=== PATIENT | female | born 1980 | race Caucasian/White ===

== ENCOUNTER 2017-01-05 01:38 | Emergency (ER) | payer MEDICAID ==
[~2017-01-05] VITALS: Ht 160 cm; Wt 72.0 kg
[2017-01-05 01:45] VITALS: Ht 160 cm; Wt 72.0 kg
[2017-01-05] MEDS ORDERED: HYDROmorphONE 1 MG/ML SYG IV STA (03:33)
[2017-01-05] MEDS ORDERED: ONDANSETRON 4 MG INJ IV STA (03:33)
[2017-01-05 04:05] LABS: ADD SCAN DIFF NO
[2017-01-05 04:09] LABS: BASOPHILS % 0.1 % (0.0-2.0); EOSINOPHILS % 0.1 % (0.0-7.0); HEMATOCRIT 34.8 % (37.0-47.0); HEMOGLOBIN 11.6 g/dl (12.0-16.0); LYMPHOCYTES # 1.1 10^3/ul (0.8-2.9); LYMPHOCYTES % 11.3 % (15.0-51.0); MEAN CORPUSCULAR HEMOGLOBIN 29.3 pg (29.0-33.0); MEAN CORPUSCULAR HGB CONC 33.3 g/dl (32.0-37.0); MEAN CORPUSCULAR VOLUME 87.9 fl (82.0-101.0); MEAN PLATELET VOLUME 10.9 fl (7.4-10.4); MONOCYTE # 0.9 10^3/ul (0.3-0.9); MONOCYTES % 9.3 % (0.0-11.0); NEUTROPHIL # 7.3 10^3/ul (1.6-7.5); NEUTROPHILS % 78.9 % (39.0-77.0); PLATELET COUNT 238 10^3/UL (140-415); RED BLOOD COUNT 3.96 10^6/ul (4.20-5.40); RED CELL DISTRIBUTION WIDTH 12.5 % (11.5-14.5); WHITE BLOOD COUNT 9.3 10^3/ul (4.8-10.8)
[2017-01-05 04:30] LABS: ALBUMIN 4.5 g/dl (3.3-4.9); ALBUMIN/GLOBULIN RATIO 1.55; BILIRUBIN,INDIRECT 0.4 mg/dl (0-1.1); BILIRUBIN,TOTAL 0.4 mg/dl (0.2-1.3); CALCIUM 8.9 mg/dl (8.4-10.2); CREATININE 0.74 mg/dl (0.44-1.00); POTASSIUM 3.3 mmol/L (3.5-5.1); TOTAL PROTEIN 7.4 g/dl (6.1-8.1)
[2017-01-05 04:50] VITALS: BP 104/64; PULSE 97; RESP 18
[2017-01-05] MEDS ORDERED: SOD CHLORIDE 0.9% 100 ML ONE (05:11)
[2017-01-05] MEDS ORDERED: IOHEXOL 300MG/ML 150 ML BTL ONE (05:11)
--- NOTE | 2017-01-05 05:34 | RADRPT ---
PROCEDURE: CT Abdomen and Pelvis with contrast. CLINICAL INDICATION: Abdominal pain. TECHNIQUE: CT scan of the abdomen and pelvis with contrast was performed utilizing axial tomograph ic images from the domes the diaphragm to the symphysis pubis. The patient was scanned post uncomp licated intravenous administration of 100 cc of Omnipaque-300. Coronal and sagittal reformatted shemar ges were obtained from the axial source images. Images were reviewed on a high-resolution PACS works tation. The total exam CTDI equals 11.93 mGy and the total exam DLP equals 646.98 mGy-cm. One or mo re of the following dose reduction techniques were used: Automated exposure control, adjustment of the mA and / or kV according to patient size, or use of iterative reconstruction technique. COMPARISON: None. FINDINGS: The lung bases are clear . The liver is normal in size and contour. No focal intrahepatic masses are identified. There is no intra or extrahepatic biliary dilatation. The gallbladder is unremark able by CT criteria. The spleen, pancreas, and adrenal glands are unremarkable. The kidneys are symmetric in size and demonstrate irregular enhancement of the lower pole right kidn ey. No hydronephrosis or hydroureter is seen. No renal parenchymal mass is identified. The urinary bladder is unremarkable. There is a small hiatal hernia. There is no evidence of bowel obstruction. There is mucosal thicken ing of the cecum and ascending colon. The appendix is normal in appearance. The uterus and adnexa a re unremarkable. There is small free fluid in the pelvis. No intraperitoneal free air or abscess id entified. No retroperitoneal, mesenteric, or inguinal adenopathy is identified. There are small righ t lower quadrant mesenteric lymph nodes, prominent in number The abdominal aorta and major branching vessels are normal in caliber. The osseous structures are u nremarkable. No significant subcutaneous soft tissue abnormality is identified. IMPRESSION: 1. Mucosal thickening of the cecum and ascending colon, consistent with colitis. There are small l ymph nodes within the right lower quadrant mesentery, likely reactive. The appendix is normal in ap pearance. 2. Patchy enhancement the lower pole of the right kidney, nonspecific, clinical correlation and cor relation for analysis is recommended to exclude ascending urinary tract infection. 3. Small free fluid in the pelvis. RPTAT: HH .Selina Perez MD, MD Date Time Electronically viewed and signed by .Selina Perez MD, MD on 01/05/2017 05:34 .G/
[2017-01-05] MEDS ORDERED: CIPR500T4 PO (05:49)
[2017-01-05] MEDS ORDERED: METR500T PO (05:49)
[2017-01-05] MEDS ORDERED: HYDR-902 PO (05:49)
--- NOTE | 2017-01-05 05:52 | ERD ---
ER Documentation Chief Complaint Date/Time DATE: 01/05/17 TIME: 05:50 Chief Complaint abd pain x 1; nausea; no vomiting HPI This is a 36-year-old female complains of pain in the left lower quadrant onset yesterday morning at 11 AM. The pain is gradual described as constant and crampy sometimes sharp. The pain is no radiation. She has no vomiting she does have nausea one time diarrhea. No history of similar symptoms in the past. No chest pain shortness of breath. No back pain no hematuria dysuria ROS All systems reviewed and are negative except as per history of present illness. Medications Home Meds Active Scripts Hydrocodone/Acetaminophen ([place] 10-325 Tablet) 1 Each Tablet, 1 TAB PO Q6H Y for PAIN, #20 TAB Prov:TAMERA JEANSTOLOS A. DO 01/05/17 Metronidazole* (Flagyl*) 500 Mg Tablet, 500 MG PO TID for 10 Days, TAB Prov:LEKKOS,APOSTOLOS A. DO 01/05/17 Ciprofloxacin Hcl* (Ciprofloxacin Hcl*) 500 Mg Tablet, 500 MG PO BID for 10 Days , TAB Prov:LEKKOS,TAMERASTOLOS A. DO 01/05/17 Allergies Allergies: Coded Allergies: No Known Drug Allergy (Verified Allergy, Mild, 03/30/14) PMhx/Soc History of Surgery: Yes (hysterectomy 2016) Anesthesia Reaction: No Hx Neurological Disorder: No Hx Respiratory Disorders: No Hx Cardiac Disorders: No Hx Psychiatric Problems: No Hx Miscellaneous Medical Probl: No Hx Alcohol Use: No Hx Substance Use: No Hx Tobacco Use: No Smoking Status: Never smoker FmHx Family History: No coronary disease Physical Exam Vitals Vital Signs Date Time Temp Pulse Resp B/P Pulse Ox O2 Delivery O2 Flow Rate FiO2 01/05/17 04:50 97 18 104/64 100 Room Air 01/05/17 01:45 99.6 91 20 116/70 99 Physical Exam Const: Well-developed, well-nourished Head: Atraumatic, normocephalic Eyes: Normal Conjunctiva, PERRLA, EOMI, normal sclera, no nystagmus ENT: Normal External Ears, Nose and Mouth, moist mucus membranes. Neck: Full range of motion. No meningismus, no lymphadenopathy. Resp: Clear to auscultation bilaterally, no wheezing, rhonchi, rales Cardio: Regular rate and rhythm, no murmurs, S1 S2 present Abd: Soft, mild to moderate left lower quadrant tenderness, non distended. Normal bowel sounds, no guarding or rebound, no pulsitile abdominal masses or bruits Skin: No petechiae or rashes, no ecchymosis , no maculopapular rash Back: No midline or flank tenderness Ext: No cyanosis, or edema, FROM x 4, normal inspection, neurovascularly intact x 4 Neur: Awake and alert, STR 5/5 x 4, sensation intact x 4, no focal findings, cerebellum intact Psych: Normal Mood and Affect Result Diagram: 01/05/17 0345 01/05/17 0345 Results 24 hrs Laboratory Tests Test 01/05/17 03:45 White Blood Count 9.310^3/ul Red Blood Count 3.9610^6/ul Hemoglobin 11.6g/dl Hematocrit 34.8% Mean Corpuscular Volume 87.9fl Mean Corpuscular Hemoglobin 29.3pg Mean Corpuscular Hemoglobin Concent 33.3g/dl Red Cell Distribution Width 12.5% Platelet Count 21358^3/UL Mean Platelet Volume 10.9fl Neutrophils % 78.9% Lymphocytes % 11.3% Monocytes % 9.3% Eosinophils % 0.1% Basophils % 0.1% Nucleated Red Blood Cells % 0.0/100WBC Neutrophils # 7.310^3/ul Lymphocytes # 1.110^3/ul Monocytes # 0.910^3/ul Eosinophils # 0.010^3/ul Basophils # 0.010^3/ul Nucleated Red Blood Cells # 0.010^3/ul Sodium Level 137mmol/L Potassium Level 3.3mmol/L Chloride Level 102mmol/L Carbon Dioxide Level 27mmol/L Anion Gap 11 Blood Urea Nitrogen 8mg/dl Creatinine 0.74mg/dl Glucose Level 97mg/dl Calcium Level 8.9mg/dl Total Bilirubin 0.4mg/dl Direct Bilirubin 0.00mg/dl Indirect Bilirubin 0.4mg/dl Aspartate Amino Transf (AST/SGOT) 27IU/L Alanine Aminotransferase (ALT/SGPT) 38IU/L Alkaline Phosphatase 75IU/L Total Protein 7.4g/dl Albumin 4.5g/dl Globulin 2.90g/dl Albumin/Globulin Ratio 1.55 Current Medications Medications (Trade) Dose Ordered Sig/Baldomero Route PRN Reason Start Time Stop Time Status Last Admin Dose Admin Hydromorphone HCl (Dilaudid) 1 mg ONCE STAT IV 01/05/17 03:33 01/05/17 03:35 DC 01/05/17 03:47 Ondansetron HCl 4 mg 4 mg ONCE STAT IV 01/05/17 03:33 01/05/17 03:35 DC 01/05/17 03:47 Sodium Chloride (NS) 100 ml @ ud STK-MED ONCE .ROUTE 01/05/17 05:11 01/05/17 05:12 DC 01/05/17 05:23 Iohexol (Omnipaque 300mg/ ml) 150 ml STK-MED ONCE .ROUTE 01/05/17 05:11 01/05/17 05:12 DC 01/05/17 05:23 Procedures/MDM PROCEDURE: CT Abdomen and Pelvis with contrast. CLINICAL INDICATION: Abdominal pain. TECHNIQUE: CT scan of the abdomen and pelvis with contrast was performed utilizing axial tomographic images from the domes the diaphragm to the symphysis pubis. The patient was scanned post uncomplicated intravenous administration of 100 cc of Omnipaque-300. Coronal and sagittal reformatted images were obtained from the axial source images. Images were reviewed on a high-resolution PACS workstation. The total exam CTDI equals 11.93 mGy and the total exam DLP equals 646.98 mGy-cm. One or more of the following dose reduction techniques were used: Automated exposure control, adjustment of the mA and / or kV according to patient size, or use of iterative reconstruction technique. COMPARISON: None. FINDINGS: The lung bases are clear . The liver is normal in size and contour. No focal intrahepatic masses are identified. There is no intra or extrahepatic biliary dilatation. The gallbladder is unremarkable by CT criteria. The spleen , pancreas, and adrenal glands are unremarkable. The kidneys are symmetric in size and demonstrate irregular enhancement of the lower pole right kidney. No hydronephrosis or hydroureter is seen. No renal parenchymal mass is identified. The urinary bladder is unremarkable. There is a small hiatal hernia. There is no evidence of bowel obstruction. There is mucosal thickening of the cecum and ascending colon. The appendix is normal in appearance. The uterus and adnexa are unremarkable. There is small free fluid in the pelvis. No intraperitoneal free air or abscess identified. No retroperitoneal, mesenteric, or inguinal adenopathy is identified. There are small right lower quadrant mesenteric lymph nodes, prominent in number The abdominal aorta and major branching vessels are normal in caliber. The osseous structures are unremarkable. No significant subcutaneous soft tissue abnormality is identified. IMPRESSION: 1. Mucosal thickening of the cecum and ascending colon, consistent with colitis. There are small lymph nodes within the right lower quadrant mesentery , likely reactive. The appendix is normal in appearance. 2. Patchy enhancement the lower pole of the right kidney, nonspecific, clinical correlation and correlation for analysis is recommended to exclude ascending urinary tract infection. 3. Small free fluid in the pelvis. RPTAT: HH .Selina Perez MD, MD Date Time Electronically viewed and signed by .Selina Perez MD, MD on 01/05/2017 05 :34 .G/ CC: ALIS JEAN DO Blood work is unremarkable. Will discharge home with Cipro Flagyl and pain control. Patient has colitis of the descending and cecal: Departure Diagnosis: Primary Impression: Colitis Condition: Stable Patient Instructions: Diet, Vomiting Or Diarrhea [6Yr-Adult] ALIS JEAN DO Jan 05, 2017 05:52
== END 2017-01-05 06:11 | disposition home or self-care (01) ==
LOC: E/R 01:38
DX: K52.9 Noninfective gastroenteritis and colitis, unspecified (principal)
CPT/HCPCS: 74177; 80053; 85025; J1170; J2405; Q9967; Z7610; 36415; 96374; 96375

== ENCOUNTER 2017-05-04 08:21 | Emergency (ER) | payer MEDICAID ==
[~2017-05-04] VITALS: Ht 160 cm; Wt 68.0 kg
[~2017-05-04 08:21] MED LIST: CIPR500T4 PO; HYDR-902 PO; METR500T PO
[2017-05-04 08:24] VITALS: Ht 160 cm; Wt 68.0 kg
[2017-05-04 09:49] LABS: URINE BLOOD (Dip) POC Trace-intact (NEGATIVE)
[2017-05-04 10:59] LABS: ADD UMIC YES; UR ASCORBIC ACID NEGATIVE (NEGATIVE); UR BACTERIA FEW /HPF (NONE SEEN); UR BILIRUBIN (Dip) NEGATIVE (NEGATIVE); UR BLOOD (Dip) NEGATIVE (NEGATIVE); UR CLARITY CLEAR (CLEAR); UR COLOR YELLOW (YELLOW); UR GLUCOSE (Dip) NEGATIVE (NEGATIVE); UR KETONES (Dip) NEGATIVE (NEGATIVE); UR LEUKOCYTE ESTERASE (Dip) 1+ Leu/ul (NEGATIVE); UR NITRITE (Dip) NEGATIVE (NEGATIVE); UR NONSQUAMOUS EPITHELIAL CELL 1 /HPF (NONE SEEN); UR RBC 4 /HPF (0-5); UR SPECIFIC GRAVITY (Dip) 1.014 (1.003-1.030); UR SQUAMOUS EPITHELIAL CELL FEW /HPF (FEW); UR TOTAL PROTEIN (Dip) NEGATIVE (NEGATIVE); UR UROBILINOGEN (Dip) NEGATIVE (NEGATIVE)
--- NOTE | 2017-05-04 11:29 | ERD ---
ER Documentation Chief Complaint Chief Complaint dysuria x 3 days HPI 36 y/o female, presents to ED c/o dysuria for 3 days, associated with frequency , pelvic pressure and strong urine odor. The patient denies fever,chills, no nausea, no vomiting, no vaginal discharge. No treatment attempted. ROS All systems reviewed and are negative except as per history of present illness. Medications Home Meds Active Scripts Ciprofloxacin Hcl* (Ciprofloxacin Hcl*) 250 Mg Tablet, 250 MG PO BID for 5 Days , #14 TAB Prov:MOMO FOSTER MD 05/04/17 Hydrocodone/Acetaminophen ([place] 10-325 Tablet) 1 Each Tablet, 1 TAB PO Q6H Y for PAIN, #20 TAB Prov:TAMERA JEANSTOLOS A. DO 01/05/17 Metronidazole* (Flagyl*) 500 Mg Tablet, 500 MG PO TID for 10 Days, TAB Prov:LEKKOS,APOSTOLOS A. DO 01/05/17 Ciprofloxacin Hcl* (Ciprofloxacin Hcl*) 500 Mg Tablet, 500 MG PO BID for 10 Days , TAB Prov:TAMERA JEANSTOLOS A. DO 01/05/17 Allergies Allergies: Coded Allergies: No Known Drug Allergy (Unverified Allergy, Mild, 01/05/17) PMhx/Soc History of Surgery: Yes (hysterectomy 2016) Anesthesia Reaction: No Hx Neurological Disorder: No Hx Respiratory Disorders: No Hx Cardiac Disorders: No Hx Psychiatric Problems: No Hx Miscellaneous Medical Probl: No Hx Alcohol Use: No Hx Substance Use: No Hx Tobacco Use: No Physical Exam Vitals Vital Signs Date Time Temp Pulse Resp B/P Pulse Ox O2 Delivery O2 Flow Rate FiO2 05/04/17 08:24 98.3 74 18 102/58 98 Physical Exam Alert, oriented, no distress Head: Atraumatic Resp: Clear to auscultation bilaterally Cardio: Regular rate and rhythm, no murmurs Abd: Soft, non tender, non distended. Normal bowel sounds Back: No midline or flank tenderness Ext: No cyanosis, or edema Results 24 hrs Laboratory Tests Test 05/04/17 09:39 05/04/17 09:51 Urine Color YELLOW Urine Clarity CLEAR Urine pH 9.0 Urine Specific [place] 1.014 Urine Ketones NEGATIVEmg/dL Urine Nitrite NEGATIVEmg/dL Urine Bilirubin NEGATIVEmg/dL Urine Urobilinogen NEGATIVEmg/dL Urine Leukocyte Esterase 1+Carlos/ul Urine Microscopic RBC 4/HPF Urine Microscopic WBC 68/HPF Urine Squamous Epithelial Cells FEW/HPF Urine Bacteria FEW/HPF Urine Hemoglobin NEGATIVEmg/dL Urine Glucose NEGATIVEmg/dL Urine Total Protein NEGATIVEmg/dl Bedside Urine pH (LAB) 8.5 Bedside Urine Protein (LAB) Trace Bedside Urine Glucose (UA) Negative Bedside Urine Ketones (LAB) Negative Bedside Urine Blood Trace-intact Bedside Urine Nitrite (LAB) Negative Bedside Urine Leukocyte Esterase (L 1+ Procedures/MDM 36 y/o female patient, presents to the ED c/o dysuria for 3 days. Physical exam and vital signs unremarkable. Differential diagnosis include but not limited to :UTI, renal stone, vaginitis, appendicitis.. Labs requested showed: pyuria. Clinical presentation consistent most likely with UTI. Results and medical impression discussed with patient. The patient will be discharged home with a Rx for antibiotics for UTI. If symptoms persist, worsen or new symptoms develop, then patient is instructed to follow-up with the primary care provider. If the patient is unable to see the primary care provider, then return to the ED as needed. Departure Diagnosis: Primary Impression: UTI (urinary tract infection) Condition: Stable MOMO FOSTER MD May 04, 2017 11:29
[2017-05-04] MEDS ORDERED: CIPR-193 PO (11:31)
== END 2017-05-04 11:36 | disposition home or self-care (01) ==
LOC: FTE 08:21
DX: N39.0 Urinary tract infection, site not specified (principal)
CPT/HCPCS: 81001; 87086; Z7502; 81003; 99283